=== PATIENT | male | born 1950 | race Caucasian/White ===

== ENCOUNTER 2017-11-02 10:29 | Emergency (ER) | payer MEDICARE, OTHER, MEDICAID | END 2017-11-02 12:40 | disposition home or self-care (01) | LOC: E/R 10:29 | DX: S80.211A Abrasion, right knee, initial encounter (principal); S39.91XA Unspecified injury of abdomen, initial encounter; E66.9 Obesity, unspecified; W18.12XA Fall from or off toilet with subsequent striking against object, initial encounter; Y92.89 Other specified places as the place of occurrence of the external cause; Z68.39 Body mass index [BMI] 39.0-39.9, adult; Z79.82 Long term (current) use of aspirin; Z87.891 Personal history of nicotine dependence | CPT/HCPCS: 99282 ==

== ENCOUNTER 2018-10-05 12:22 | Emergency (ER) | payer MEDICARE, OTHER ==
[2018-10-05] MEDS: KETOROLAC 30 MG INJ IM (13:55)
== END 2018-10-05 14:50 | disposition home or self-care (01) ==
LOC: FTE 12:22
DX: S83.92XA Sprain of unspecified site of left knee, initial encounter (principal); E66.9 Obesity, unspecified; W01.0XXA Fall on same level from slipping, tripping and stumbling without subsequent striking against object, initial encounter; Y92.9 Unspecified place or not applicable; Z68.42 Body mass index [BMI] 45.0-49.9, adult
CPT/HCPCS: 73562; 96372; 99284-25